=== PATIENT | female | born 1975 | race Native Hawaiian/Other Pacific Islander ===

== ENCOUNTER 2018-12-19 14:49 | Emergency (ER) | payer OTHER ==
[~2018-12-19] VITALS: Ht 165.1 cm; Wt 124.7 kg
[2018-12-19 15:10] VITALS: TEMP 98.2
[2018-12-19 16:30] VITALS: BP 128/74
== END 2018-12-19 16:30 | disposition home or self-care (01) ==
LOC: ED 14:49
DX: M75.51 Bursitis of right shoulder (principal)
CPT/HCPCS: 96372; 99283; J1885; J2360

== ENCOUNTER 2019-01-09 17:32 | Observation (INO) | payer OTHER ==
[~2019-01-09] VITALS: Ht 165.1 cm; Wt 122.3 kg
[2019-01-09 17:40] VITALS: BP 187/113; TEMP 97.8
[2019-01-09 18:02] LABS: PLATELET COUNT 184 K/uL (152-353)
[2019-01-09 18:10] LABS: SODIUM 142 mmol/L (136-145)
[2019-01-09 18:49] LABS: PARTIAL THROMBOPLASTIN TIME 28.5 SECONDS (24.5-33.6)
[2019-01-09 20:00] VITALS: BP 140/91; TEMP 98.1
[2019-01-09 21:04] VITALS: BP 140/91; TEMP 98.1; Ht 165.1 cm; Wt 122.3 kg
[2019-01-09 23:43] VITALS: BP 90/54; TEMP 98.2
[2019-01-10 04:00] VITALS: BP 106/79; TEMP 97.8
[2019-01-10 08:00] VITALS: BP 105/67; TEMP 97.5
[2019-01-10 12:00] VITALS: BP 101/66; TEMP 98.2
== END 2019-01-10 13:20 | disposition home or self-care (01) ==
LOC: ED 17:32 → MED/SURG 18:45
PROVIDERS: ADMIT Hospitalist
DX: R07.89 Other chest pain (principal); E66.01 Morbid (severe) obesity due to excess calories; R06.02 Shortness of breath; I10 Essential (primary) hypertension; R42 Dizziness and giddiness; I11.0 Hypertensive heart disease with heart failure
CPT/HCPCS: 36415; 80053; 82550; 83880; 84443; 84484; 85027; 85379; 85610; 85730; 86318; 93005; 96365; 96372; 96374; 96375; 99220; 99284; G0378; J1650; J1885; J2270; J2405; J2550

== ENCOUNTER 2019-03-18 15:51 | Emergency (ER) | payer OTHER ==
[~2019-03-18] VITALS: Ht 165.1 cm; Wt 124.7 kg
[2019-03-18 17:18] LABS: PLATELET COUNT 172 K/uL (152-353)
[2019-03-18 17:24] LABS: POTASSIUM 3.8 mmol/L (3.6-5.2)
[2019-03-18 21:40] VITALS: BP 132/59; TEMP 97.7
== END 2019-03-18 21:41 | disposition home or self-care (01) ==
LOC: ED 15:51
PROVIDERS: Family Medicine
DX: N83.202 Unspecified ovarian cyst, left side (principal)
CPT/HCPCS: 36415; 80053; 81000; 85027; 96360; 96374; 96375; 99284; J1885; J2175; J2405; Q9963

== ENCOUNTER 2019-03-19 15:36 | Emergency (ER) | payer OTHER ==
[~2019-03-19] VITALS: Ht 165.1 cm; Wt 124.7 kg
[2019-03-19 15:45] VITALS: BP 13/90; TEMP 98.1
== END 2019-03-19 17:56 | disposition home or self-care (01) ==
LOC: ED 15:36
DX: S39.012A Strain of muscle, fascia and tendon of lower back, initial encounter (principal); X50.9XXA Other and unspecified overexertion or strenuous movements or postures, initial encounter; Y93.E3 Activity, vacuuming; Y92.098 Other place in other non-institutional residence as the place of occurrence of the external cause
CPT/HCPCS: 96372; 99283; J1885; J2175; J2405

== ENCOUNTER 2019-06-24 19:29 | Emergency (ER) | payer OTHER ==
[~2019-06-24] VITALS: Ht 165.1 cm; Wt 124.7 kg
[2019-06-24 20:49] LABS: POTASSIUM 3.5 mmol/L (3.6-5.2)
[2019-06-24 20:57] LABS: PLATELET COUNT 198 K/uL (152-353)
[2019-06-24 21:35] VITALS: BP 136/90; TEMP 97.9
== END 2019-06-24 21:35 | disposition home or self-care (01) ==
LOC: ED 19:29
PROVIDERS: Family Medicine
DX: N83.292 Other ovarian cyst, left side (principal); E87.6 Hypokalemia; E87.1 Hypo-osmolality and hyponatremia
CPT/HCPCS: 80053; 81000; 85027; 96372; 99282; J1885

== ENCOUNTER 2019-11-29 13:06 | Emergency (ER) | payer OTHER ==
[~2019-11-29] VITALS: Ht 165.1 cm; Wt 127.0 kg
[2019-11-29 13:06] VITALS: TEMP 99.1
[2019-11-29 14:22] LABS: PLATELET COUNT 185 K/uL (152-353)
[2019-11-29 14:28] LABS: POTASSIUM 3.7 mmol/L (3.6-5.2)
[2019-11-29 14:34] LABS: PARTIAL THROMBOPLASTIN TIME 29.4 SECONDS (24.5-33.6)
[2019-11-29 18:00] VITALS: BP 137/85
== END 2019-11-29 18:09 | disposition home or self-care (01) ==
LOC: ED 13:08
PROVIDERS: Family Medicine
DX: S00.83XA Contusion of other part of head, initial encounter (principal); S16.1XXA Strain of muscle, fascia and tendon at neck level, initial encounter; S39.012A Strain of muscle, fascia and tendon of lower back, initial encounter; S86.812A Strain of other muscle(s) and tendon(s) at lower leg level, left leg, initial encounter; W10.8XXA Fall (on) (from) other stairs and steps, initial encounter; Y92.098 Other place in other non-institutional residence as the place of occurrence of the external cause
CPT/HCPCS: 80053; 85027; 85610; 85730; 96374; 96375; 99284; J1885; J2405

== ENCOUNTER 2020-01-12 15:33 | Emergency (ER) | payer OTHER ==
[~2020-01-12] VITALS: Ht 165.1 cm; Wt 127.0 kg
[2020-01-12 15:58] LABS: PLATELET COUNT 113 K/uL (152-353)
[2020-01-12 16:05] LABS: POTASSIUM 3.6 mmol/L (3.6-5.2)
[2020-01-12 16:18] VITALS: BP 146/80; TEMP 98.9
== END 2020-01-12 16:18 | disposition home or self-care (01) ==
LOC: ED 15:33
PROVIDERS: Hospitalist
DX: J06.9 Acute upper respiratory infection, unspecified (principal); U07.1 COVID-19
CPT/HCPCS: 80053; 85027; 87502; 87635; 87651; 99283; U0003

== ENCOUNTER 2020-01-16 16:50 | Emergency (ER) | payer OTHER ==
[~2020-01-16] VITALS: Ht 165.1 cm; Wt 127.0 kg
[2020-01-16 17:50] LABS: PLATELET COUNT 165 K/uL (152-353)
[2020-01-16 18:11] LABS: POTASSIUM 3.7 mmol/L (3.6-5.2); SODIUM 138 mmol/L (136-145)
[2020-01-16 19:40] VITALS: BP 121/81; TEMP 98.4
== END 2020-01-16 19:40 | disposition home or self-care (01) ==
LOC: ED 16:50
PROVIDERS: Emergency Medicine Emergency Medical Services
DX: R06.09 Other forms of dyspnea (principal); U07.1 COVID-19
CPT/HCPCS: 80048; 83880; 84484; 85027; 85379; 85610; 93005; 96374; 96375; 99284; J1885; J2405

== ENCOUNTER 2020-01-20 12:34 | Inpatient (IN) | payer OTHER ==
[2020-01-20] VITALS (9 sets, daily range): BP systolic 102–126; BP diastolic 55–92; TEMP 98.3–98.4; Ht 165.1 cm; Wt 128.6 kg
[~2020-01-20] VITALS: Ht 165.1 cm; Wt 128.6 kg
[2020-01-20 13:20] LABS: PLATELET COUNT 183 K/uL (152-353)
[2020-01-20 13:25] LABS: POTASSIUM 4.1 mmol/L (3.6-5.2)
[2020-01-20 14:17] LABS: PARTIAL THROMBOPLASTIN TIME 28.7 SECONDS (24.5-33.6)
[2020-01-20] MEDS ORDERED: CITALOPRAM20 M1 PO (19:17)
[2020-01-21 04:00] VITALS: BP 114/69; TEMP 97.8
[2020-01-21 05:18] LABS: POTASSIUM 4.5 mmol/L (3.6-5.2)
[2020-01-21 05:26] LABS: PLATELET COUNT 170 K/uL (152-353)
[2020-01-21 08:00] VITALS: BP 128/83; TEMP 97.9
[2020-01-21 12:00] VITALS: BP 120/78; TEMP 97.6
[2020-01-21 16:00] VITALS: BP 129/84; TEMP 98.6
[2020-01-21 20:00] VITALS: BP 137/65; TEMP 98.1
[2020-01-21 23:41] VITALS: BP 126/69; TEMP 97.7
[2020-01-22 04:00] VITALS: BP 118/72; TEMP 97.9
[2020-01-22 05:49] LABS: PLATELET COUNT 186 K/uL (152-353)
[2020-01-22 06:06] LABS: POTASSIUM 4.5 mmol/L (3.6-5.2)
[2020-01-22 08:00] VITALS: BP 121/72; TEMP 98.1
[2020-01-22 12:00] VITALS: BP 120/85; TEMP 97.8
[2020-01-22 16:00] VITALS: BP 127/59; TEMP 98.2
[2020-01-22 20:00] VITALS: BP 129/63; TEMP 97.4
[2020-01-22 23:51] VITALS: BP 110/60; TEMP 98.1
[2020-01-23 03:46] VITALS: BP 116/68; TEMP 98.3
[2020-01-23 06:23] LABS: POTASSIUM 4.2 mmol/L (3.6-5.2)
[2020-01-23 07:18] LABS: PLATELET COUNT 167 K/uL (152-353)
[2020-01-23 08:00] VITALS: BP 139/85; TEMP 98.1
[2020-01-23 12:00] VITALS: BP 113/55; TEMP 98.2
[2020-01-23 16:00] VITALS: BP 138/80; TEMP 98.4
[2020-01-23 20:00] VITALS: BP 122/78; TEMP 98.8
[2020-01-24] VITALS: BP 121/64; TEMP 98.5
[2020-01-24 04:00] VITALS: BP 128/60; TEMP 98.1
[2020-01-24 05:13] LABS: PLATELET COUNT 195 K/uL (152-353)
[2020-01-24 05:36] LABS: POTASSIUM 4.1 mmol/L (3.6-5.2)
[2020-01-24 08:00] VITALS: BP 125/67; TEMP 98
[2020-01-24] MEDS ORDERED: ASCO500T18 PO (10:45)
[2020-01-24] MEDS ORDERED: PULMICORT180 MCG/AC INH (10:45)
[2020-01-24] MEDS ORDERED: FAMOTIDINE20 MG PO (10:46)
[2020-01-24] MEDS ORDERED: ZINC220C4 PO (10:47)
[2020-01-24 12:00] VITALS: BP 119/76; TEMP 98.2
[2020-01-24 16:00] VITALS: BP 111/71; TEMP 98.6
== END 2020-01-24 20:02 | disposition home or self-care (01) | DRG 177 ==
LOC: ED 12:34 → MED/SURG 17:45
PROVIDERS: ADMIT Family Medicine; ATTEND Internal Medicine Endocrinology, Diabetes & Metabolism
DX: U07.1 COVID-19 (principal); J12.89 Other viral pneumonia; Z68.42 Body mass index [BMI] 45.0-49.9, adult; F41.8 Other specified anxiety disorders; E66.01 Morbid (severe) obesity due to excess calories
CPT/HCPCS: 36415; 80053; 81000; 85027; 85379; 85610; 85730; 94667; 94668; 94760; 96374; 99284; J0456; J1100; J1650; J2550; J2930; J3490

== ENCOUNTER 2020-06-29 08:22 | Outpatient (CLI) | payer OTHER ==
[~2020-06-29 08:22] MED LIST: ASCO500T18 PO; CITALOPRAM20 M1 PO; FAMOTIDINE20 MG PO; PULMICORT180 MCG/AC INH; ZINC220C4 PO
== END 2020-06-29 21:46 | disposition home or self-care (01) ==
LOC: MAMMO 08:22
PROVIDERS: ATTEND Obstetrics & Gynecology
DX: Z12.31 Encounter for screening mammogram for malignant neoplasm of breast (principal)

== ENCOUNTER 2020-08-18 16:43 | Emergency (ER) | payer OTHER | END 2020-08-18 18:50 | disposition home or self-care (01) | LOC: ED 16:43 | DX: M25.572 Pain in left ankle and joints of left foot (principal); G90.522 Complex regional pain syndrome I of left lower limb | CPT/HCPCS: 99282 ==

== ENCOUNTER 2020-08-30 18:28 | Emergency (ER) | payer OTHER ==
[~2020-08-30] VITALS: Ht 165.1 cm; Wt 129.3 kg
[2020-08-30 18:45] VITALS: TEMP 98.5
[2020-08-30 20:51] VITALS: BP 143/80
== END 2020-08-30 20:53 | disposition home or self-care (01) ==
LOC: ED 18:28
DX: S83.203D Other tear of unspecified meniscus, current injury, right knee, subsequent encounter (principal); W19.XXXD Unspecified fall, subsequent encounter; Y92.89 Other specified places as the place of occurrence of the external cause
CPT/HCPCS: 96372; 99283; J2270; J2405

== ENCOUNTER → 2020-09-30 | Outpatient (CLI) | payer OTHER | LOC: RAD 14:40 | PROVIDERS: ATTEND Physician Assistant | DX: M25.572 Pain in left ankle and joints of left foot (principal); M25.569 Pain in unspecified knee; R53.83 Other fatigue; R63.5 Abnormal weight gain ==

== ENCOUNTER 2021-01-29 07:58 | Outpatient (CLI) | payer OTHER | END 2021-01-29 19:02 | disposition home or self-care (01) | LOC: RAD 07:58 | PROVIDERS: ATTEND Physician Assistant | DX: S92.902A Unspecified fracture of left foot, initial encounter for closed fracture (principal); Z13.820 Encounter for screening for osteoporosis; Y92.9 Unspecified place or not applicable ==

== ENCOUNTER 2021-03-04 09:23 | Outpatient (CLI) | payer OTHER | END 2021-03-04 18:50 | disposition home or self-care (01) | LOC: US 09:23 | PROVIDERS: ATTEND Physician Assistant | DX: R10.13 Epigastric pain (principal) ==

== ENCOUNTER 2022-01-06 13:44 | Emergency (ER) | payer OTHER ==
[~2022-01-06] VITALS: Ht 165.1 cm; Wt 133.8 kg
[2022-01-06 13:44] VITALS: TEMP 98.1
[2022-01-06 14:42] LABS: PLATELET COUNT 180 K/uL (152-353)
[2022-01-06 18:00] VITALS: BP 146/64
== END 2022-01-06 18:05 | disposition short-term general hospital (02) ==
LOC: ED 13:44
PROVIDERS: Emergency Medicine Emergency Medical Services
DX: R55 Syncope and collapse (principal); R51.9 Headache, unspecified
CPT/HCPCS: 80053; 81002; 83735; 84484; 85027; 93005; 96360; 96374; 96375; 99284; J1170; J1200; J1885

== ENCOUNTER 2022-02-16 20:55 | Emergency (ER) | payer OTHER ==
[~2022-02-16] VITALS: Ht 165.1 cm; Wt 133.8 kg
[2022-02-16 20:55] VITALS: TEMP 98.6
[2022-02-16 21:17] LABS: PLATELET COUNT 123 K/uL (152-353)
[2022-02-16 21:26] LABS: POTASSIUM 3.5 mmol/L (3.6-5.2)
[2022-02-16 21:32] LABS: PARTIAL THROMBOPLASTIN TIME 28.4 SECONDS (24.5-33.6)
[2022-02-16 23:30] VITALS: BP 120/70
== END 2022-02-16 23:30 | disposition home or self-care (01) ==
LOC: ED 20:55
PROVIDERS: Emergency Medicine
DX: I49.8 Other specified cardiac arrhythmias (principal)
CPT/HCPCS: 36415; 80053; 82550; 83880; 84443; 84484; 85027; 85379; 85610; 85730; 93005; 96360; 96374; 99284; J0153